=== PATIENT | female | born 1955 | race Caucasian/White ===

== ENCOUNTER 2017-12-28 10:13 | Emergency (ER) | payer OTHER ==
[2017-12-28] MEDS: KETOROLAC 15 MG INJ IV (10:44)
== END 2017-12-28 12:53 | disposition home or self-care (01) ==
LOC: E/R 10:13
DX: S40.012A Contusion of left shoulder, initial encounter (principal); S40.011A Contusion of right shoulder, initial encounter; G89.4 Chronic pain syndrome; I10 Essential (primary) hypertension; F17.210 Nicotine dependence, cigarettes, uncomplicated; W01.0XXA Fall on same level from slipping, tripping and stumbling without subsequent striking against object, initial encounter; Y92.9 Unspecified place or not applicable
CPT/HCPCS: 71045; 73030; 73030-RT; 73610-RT; 96372; 99284-25